=== PATIENT | male | born 2000 | race Caucasian/White ===

== ENCOUNTER 2023-09-30 12:55 | Emergency (ER) | payer OTHER, BC ==
[~2023-09-30] VITALS: Ht 167.6 cm; Wt 68.2 kg
[2023-09-30] MEDS ORDERED: DERMABOND TOPICAL SKIN ADHESIVE TOP ONE (17:50)
[2023-09-30] MEDS ORDERED: BOOSTRIX VACCINE (TETANUS/DIPHTH/ACEL. PERTUSSIS) 0.5ML SYR IM ONE (17:50)
[2023-09-30 18:09] VITALS: BP 137/84; TEMP 98.3; O2SAT 98
== END 2023-09-30 18:15 | disposition home or self-care (01) ==
LOC: M ED 12:55
DX: S61.411A Laceration without foreign body of right hand, initial encounter (principal); Y92.9 Unspecified place or not applicable; X58.XXXA Exposure to other specified factors, initial encounter

== ENCOUNTER → 2025-10-22 | Outpatient (CLI) | payer BC, OTHER ==
[2025-10-22 17:47] LABS: BASO # 0.1 10^3/uL (0.0-0.2); BASO % 0.9 % (0.0-1.0); EOS # 0.3 10^3/uL (0.0-0.5); EOS % 4.9 % (0.0-3.0); LYMPH # 2.0 10^3/uL (1.5-5.0); LYMPH % 29.2 % (24.0-44.0); MONO # 0.5 10^3/uL (0.0-0.8); MONO % 7.3 % (2.0-8.0); NEUTROPHILS # 4.0 10^3/uL (1.5-8.5); NEUTROPHILS % 57.4 % (36.0-66.0); PLATELET COUNT, AUTOMATED 259 10^3/uL (150-450)
[2025-10-22 18:21] LABS: ALT/SGPT 16 U/L (7.0-40); AST/SGOT 14 U/L (<34); CALCIUM LEVEL 9.9 MG/DL (8.5-10.1); CARBON DIOXIDE LEVEL 33 MMOL/L (20-31); CHLORIDE LEVEL 102 MMOL/L (98-107); CHOLESTEROL LEVEL 167 MG/DL (<200); CHOLESTEROL RISK RATIO 2.53 (<5); CREATININE FOR GFR 0.94 MG/DL (0.70-1.30); GLOMERULAR FILTRATION RATE > 90.0 (>60); LDL CHOLESTEROL 83.0 MG/DL (<100); NON-HDL-C 101.0 MG/DL; POTASSIUM SERUM 4.5 MMOL/L (3.5-5.1); SODIUM LEVEL 141 MMOL/L (136-145); TRIGLYCERIDES LEVEL 90 MG/DL (<150)
[2025-10-22 18:25] LABS: TOTAL 25(OH) VITAMIN D 11.6 NG/ML (20.0-100.0)
== END ==
LOC: M PLALAB 15:50
PROVIDERS: ATTEND Nurse Practitioner Family
DX: Z00.00 Encounter for general adult medical examination without abnormal findings (principal); E55.9 Vitamin D deficiency, unspecified; Z13.220 Encounter for screening for lipoid disorders